=== PATIENT | female | born 2000 | race Caucasian/White ===

== ENCOUNTER 2022-01-31 03:22 | Inpatient (IN) | payer MEDICAID ==
[2022-01-31] MEDS ORDERED: Nalbuphine HCl 10 MG/ 1ML Amp IVPUSH PRN (03:30)
[2022-01-31] MEDS ORDERED: Sodium Chloride 0.9% 10 ML Syringe FLUSH PRN (03:30)
[2022-01-31] MEDS ORDERED: Oxytocin/Lactated Ringers 10 UNIT/1,000 ML BAG IV SCH (03:30)
[2022-01-31] MEDS ORDERED: Lidocaine 1% 50 ML MDV INJECT SCH (03:30)
[2022-01-31] MEDS ORDERED: Ampicillin 2 GM in Sodium Chloride 0.9% 100 ML IV ONE (04:00)
[2022-01-31] MEDS: Lactated Ringers 1,000 ML IV SCH ×3 (04:15→13:18)
[2022-01-31] MEDS ORDERED: Misoprostol 25 MCG (1/4 of 100 MCG) Tab VAG ONE ×2 (05:59→11:28)
[2022-01-31] MEDS ORDERED: Lidocaine 2% with EPINEPHrine 1:200,000 20 ML SDV ONE (06:00)
[2022-01-31] MEDS ORDERED: Bupivacaine 0.25% 10 ML SDV ONE (06:00)
[2022-01-31] MEDS ORDERED: Sodium Bicarbonate 8.4% 50 MEQ/50 ML SDV ONE (06:00)
[2022-01-31] MEDS ORDERED: diphenhydrAMINE 50 MG/ML SDV IVPUSH PRN (06:08)
[2022-01-31] MEDS ORDERED: ePHEDrine 50 MG/ML SDV IVPUSH PRN (06:08)
[2022-01-31] MEDS ORDERED: fentaNYL 100 MCG/2 ML SDV EPIDUR PRN (06:08)
[2022-01-31 06:31] LABS: ESTIMATED GFR > 60 mL/min (>60)
[2022-01-31] MEDS ORDERED: Ampicillin 1 GM in Sodium Chloride 0.9% 100 ML IV SCH (08:00)
[2022-01-31] MEDS: Ampicillin 1 GM in Sodium Chloride 0.9% 100 ML IV SCH ×4 (08:35→20:48)
[2022-01-31] MEDS: Bupivacaine/fentaNYL/NS 100 ML Bag EPIDUR PRN ×2 (10:33→19:35)
[2022-01-31] MEDS: Oxytocin/Lactated Ringers 10 UNIT/1,000 ML BAG IV SCH (16:10)
[2022-01-31] MEDS: Ondansetron 4 MG/2 ML SDV IVPUSH PRN (23:06)
[2022-02-01] MEDS: Ampicillin 1 GM in Sodium Chloride 0.9% 100 ML IV SCH ×4 (00:54→19:24)
[2022-02-01] MEDS: Bupivacaine/fentaNYL/NS 100 ML Bag EPIDUR PRN (04:12)
[2022-02-01] MEDS: Ondansetron 4 MG/2 ML SDV IVPUSH PRN (09:15)
[2022-02-01] MEDS: Lactated Ringers 1,000 ML IV SCH ×2 (10:14→13:43)
[2022-02-01] MEDS: Oxytocin/Lactated Ringers 10 UNIT/1,000 ML BAG IV SCH (10:15)
[2022-02-01] MEDS ORDERED: Metoclopramide 10 MG/2 ML SDV IVPUSH ONE (12:39)
[2022-02-01] MEDS ORDERED: Citric Acid/Sodium Citrate Solution 30 ML Cup PO ONE (12:39)
[2022-02-01] MEDS ORDERED: Azithromycin 500 MG in Sodium Chloride 0.9% 250 ML IV ONE (12:41)
[2022-02-01] MEDS ORDERED: Bupivacaine 0.5% 30 ML SDV ONE (12:47)
[2022-02-01] MEDS ORDERED: Metoclopramide 10 MG/2 ML SDV ONE (12:47)
[2022-02-01] MEDS ORDERED: ceFAZolin 1 GM Vial ONE (12:49)
[2022-02-01] MEDS ORDERED: Lactated Ringers 1,000 ML ONE (12:49)
[2022-02-01] MEDS ORDERED: Oxytocin 10 Units/1 ML SDV ONE (14:18)
[2022-02-01] MEDS ORDERED: Ondansetron 4 MG/2 ML SDV ONE (14:21)
[2022-02-01] MEDS ORDERED: Morphine 10 MG/ML SDV ONE (14:24)
[2022-02-01] MEDS ORDERED: Morphine PF 10 MG/10 ML SDV ONE (14:25)
[2022-02-01] MEDS ORDERED: Ketorolac 30 MG/ML SDV ONE (14:36)
[2022-02-01] MEDS ORDERED: Dexamethasone 4 MG/ML SDV ONE (14:36)
[2022-02-01] MEDS ORDERED: Albuterol 6.7 GM Inhaler INH PRN (15:10)
[2022-02-01] MEDS ORDERED: diphenhydrAMINE 50 MG/ML SDV IVPUSH PRN ×2 (15:12→15:41)
[2022-02-01] MEDS ORDERED: Ondansetron 4 MG/2 ML SDV IV PRN (15:12)
[2022-02-01] MEDS ORDERED: ePHEDrine 50 MG/ML SDV IVPUSH PRN (15:12)
[2022-02-01] MEDS ORDERED: Naloxone 0.4 MG/ML SDV IVPUSH PRN (15:12)
[2022-02-01] MEDS ORDERED: Dextrose 5%-Lactated Ringers 1,000 ML IV SCH (15:15)
[2022-02-01] MEDS ORDERED: Ondansetron 4 MG/2 ML SDV IVPUSH PRN (15:41)
[2022-02-01] MEDS ORDERED: Meperidine 50 MG/ML Vial IVPUSH PRN (15:41)
[2022-02-01] MEDS ORDERED: fentaNYL 100 MCG/2 ML SDV IVPUSH PRN (15:41)
[2022-02-01] MEDS: Simethicone 80 MG Tab.Chew PO SCH ×2 (18:39→22:09)
[2022-02-01] MEDS: Ibuprofen 800 MG Tab PO SCH (22:10)
[2022-02-02] MEDS: Ibuprofen 800 MG Tab PO SCH ×3 (05:15→21:02)
[2022-02-02] MEDS: Simethicone 80 MG Tab.Chew PO SCH ×4 (08:53→21:02)
[2022-02-02] MEDS: Docusate Sodium 100 MG Cap PO PRN (08:53)
[2022-02-02] MEDS: Acetaminophen/oxyCODONE 325-5 MG Tab PO PRN ×3 (13:56→19:39)
[2022-02-03] MEDS: Acetaminophen/oxyCODONE 325-5 MG Tab PO PRN ×6 (00:57→23:31)
[2022-02-03] MEDS: Ibuprofen 800 MG Tab PO SCH ×3 (04:54→21:09)
[2022-02-03] MEDS: Simethicone 80 MG Tab.Chew PO SCH ×4 (09:35→21:09)
[2022-02-03] MEDS: Docusate Sodium 100 MG Cap PO PRN (09:38)
[2022-02-03] MEDS ORDERED: Magnesium Hydroxide 400 MG/5 ML Susp 30 ML Cup PO ONE (21:06)
[2022-02-04] MEDS: Ibuprofen 800 MG Tab PO SCH (04:45)
[2022-02-04] MEDS: Acetaminophen/oxyCODONE 325-5 MG Tab PO PRN ×2 (04:45→10:55)
[2022-02-04] MEDS: Simethicone 80 MG Tab.Chew PO SCH (09:29)
== END 2022-02-04 11:35 | disposition home or self-care (01) | DRG 788 ==
LOC: JD.OBCHECK 03:22 → JD.OB 03:30 → OBSVTOIN 14:33 → JD.OB 02-01 14:34
PROVIDERS: ADMIT Obstetrics & Gynecology; ATTEND Obstetrics & Gynecology
PROC: 3E0P7VZ Introduction of Hormone into Female Reproductive, Via Natural or Artificial Opening (ICD-10-PCS; 2022-01-31)
PROC: 10D00Z1 Extraction of Products of Conception, Low, Open Approach (ICD-10-PCS; principal; 2022-02-01)
PROC: 10H07YZ Insertion of Other Device into Products of Conception, Via Natural or Artificial Opening (ICD-10-PCS; 2022-02-01)
PROC: 10907ZC Drainage of Amniotic Fluid, Therapeutic from Products of Conception, Via Natural or Artificial Opening (ICD-10-PCS; 2022-02-01)
DX: O14.94 Unspecified pre-eclampsia, complicating childbirth (principal); Z3A.38 38 weeks gestation of pregnancy; Z37.0 Single live birth; O65.4 Obstructed labor due to fetopelvic disproportion, unspecified
CPT/HCPCS: 01967; 01968; 36415; 51702; 59025; 82565; 82570; 83615; 84156; 84450; 84460; 84520; 84550; 85025; 86592; 86850; 86900; 86901; A9270-GY; J0290; J0456; J0690; J1100; J1885; J2270; J2274; J2405; J2590; J2765; J3010; J3490; J7050; J7120; J7121

== ENCOUNTER 2025-01-02 04:17 | Inpatient (IN) | payer MEDICAID ==
[~2025-01-02 04:17] MED LIST: Lactated Ringers 1,000 ML IV SCH; Oxytocin/0.9 % Sodium Chloride 30 UNIT/500 ML BAG IV SCH; Sodium Chloride 0.9% 10 ML Syringe FLUSH PRN; ceFAZolin 2 GM in Sodium Chloride 0.9% 50 ML IV ONE
[2025-01-02] MEDS ORDERED: ceFAZolin 2 GM in Sodium Chloride 0.9% 50 ML IV ONE (04:49)
[2025-01-02] MEDS: Lactated Ringers 1,000 ML IV SCH (05:35)
[2025-01-02 05:58] LABS: BASOPHILS PERCENT AUTO 0.3 % (0.0-1.0); EOSINOPHILS ABSOLUTE AUTO 0.3 K/mm3 (0.0-0.4); EOSINOPHILS PERCENT AUTO 2.4 % (0.0-6.0); HEMOGLOBIN 11.1 gm/dl (12.0-16.0); IMMATURE GRAN ABSOLUTE AUTO 0.08 K/mm3 (0.00-0.05); IMMATURE GRAN PERCENT AUTO 0.8 % (0.0-0.4); LYMPHOCYTES ABSOLUTE AUTO 3.2 K/mm3 (1.0-4.8); LYMPHOCYTES PERCENT AUTO 31.3 % (24.0-44.0); MEAN CORPUSCULAR HEMOGLOBIN 25.9 pg (28.0-32.0); MEAN CORPUSCULAR HGB CONC 32.6 g/dl (32.0-36.0); MEAN CORPUSCULAR VOLUME 79.3 fl (83.0-99.0); MONOCYTES ABSOLUTE AUTO 0.8 K/mm3 (0.0-0.8); MONOCYTES PERCENT AUTO 7.6 % (0.0-8.0); NEUTROPHILS PERCENT AUTO 57.6 % (41.0-71.0); PLATELET COUNT,PLT 174 K/mm3 (150-400); RED BLOOD CELL COUNT 4.29 M/mm3 (4.10-5.30); WHITE BLOOD CELL COUNT,WBC 10.32 K/mm3 (3.9-11.3)
[2025-01-02] MEDS: Metoclopramide 10 MG/2 ML SDV IVPUSH ONE ×2 (06:35→07:26)
[2025-01-02] MEDS: Citric Acid/Sodium Citrate Solution 30 ML Cup PO ONE ×2 (06:35→07:26)
[2025-01-02] MEDS ORDERED: Phenylephrine 1% 10 MG/ML SDV ONE (06:38)
[2025-01-02] MEDS ORDERED: Ondansetron 4 MG/2 ML SDV ONE (06:38)
[2025-01-02] MEDS ORDERED: Morphine PF 10 MG/10 ML SDV ONE (06:38)
[2025-01-02] MEDS ORDERED: dexmedeTOMIDine HCl 200 MCG/2 ML SDV ONE (06:38)
[2025-01-02] MEDS: Sodium Chloride 0.9% 10 ML Syringe FLUSH SCH ×2 (07:26→12:29)
[2025-01-02] MEDS: ceFAZolin 2 GM Vial IVPUSH ONE (07:29)
[2025-01-02] MEDS ORDERED: Dexamethasone 4 MG/ML 5 ML MDV ONE (08:00)
[2025-01-02] MEDS ORDERED: Glycopyrrolate 0.2 MG/ML 2 ML SDV ONE (08:03)
[2025-01-02] MEDS ORDERED: ceFAZolin 2 GM Vial ONE (08:04)
[2025-01-02] MEDS ORDERED: Propofol 200 MG/20 ML SDV ONE (08:23)
[2025-01-02] MEDS ORDERED: Lactated Ringers 1,000 ML IV ONE (08:30)
[2025-01-02] MEDS ORDERED: Ketorolac 30 MG/ML SDV ONE (08:33)
[2025-01-02] MEDS ORDERED: Sodium Chloride 0.9% 50 ML SDV ONE (08:37)
[2025-01-02] MEDS ORDERED: Ropivacaine 0.5% 5 MG/ML 30 ML SDV ONE (08:37)
[2025-01-02] MEDS ORDERED: Ondansetron 4 MG/2 ML SDV IVPUSH PRN (09:08)
[2025-01-02] MEDS ORDERED: diphenhydrAMINE 50 MG/ML SDV IVPUSH PRN ×2 (09:08→09:12)
[2025-01-02] MEDS ORDERED: Meperidine 50 MG/ML Vial IVPUSH PRN (09:08)
[2025-01-02] MEDS ORDERED: fentaNYL 100 MCG/2 ML SDV IVPUSH PRN (09:08)
[2025-01-02] MEDS ORDERED: ePHEDrine 50 MG/ML SDV IVPUSH PRN (09:12)
[2025-01-02] MEDS ORDERED: Naloxone 0.4 MG/ML SDV IVPUSH PRN (09:12)
[2025-01-02] MEDS: Ibuprofen 800 MG Tab PO SCH ×2 (11:00→17:02)
[2025-01-02] MEDS: Acetaminophen 325 MG Tab PO SCH ×2 (11:00→17:03)
[2025-01-02] MEDS: Dextrose 5%-Lactated Ringers 1,000 ML IV SCH (12:48)
[2025-01-02] MEDS: oxyCODONE 5 MG Tab PO PRN (18:05)
[2025-01-02] MEDS: Simethicone 80 MG Tab.Chew PO PRN (20:36)
[2025-01-02] MEDS: Sennosides 8.6 MG Tab PO SCH (21:55)
[2025-01-03] MEDS: oxyCODONE 5 MG Tab PO PRN (03:14)
[2025-01-03 05:38] LABS: HEMATOCRIT 31.5 % (37.0-47.0); HEMOGLOBIN 10.1 gm/dl (12.0-16.0); MEAN CORPUSCULAR HGB CONC 32.1 g/dl (32.0-36.0); MEAN CORPUSCULAR VOLUME 81.2 fl (83.0-99.0); PLATELET COUNT,PLT 146 K/mm3 (150-400); RED BLOOD CELL COUNT 3.88 M/mm3 (4.10-5.30); WHITE BLOOD CELL COUNT,WBC 10.21 K/mm3 (3.9-11.3)
[2025-01-03] MEDS: Docusate Sodium 100 MG Cap PO PRN (17:48)
== END 2025-01-04 11:35 | disposition home or self-care (01) | DRG 788 ==
LOC: JD.OB 04:17
PROVIDERS: ADMIT Obstetrics & Gynecology; ATTEND Obstetrics & Gynecology
PROC: 10D00Z1 Extraction of Products of Conception, Low, Open Approach (ICD-10-PCS; principal; 2025-01-02 07:30)
DX: O34.211 Maternal care for low transverse scar from previous cesarean delivery (principal); Z3A.38 38 weeks gestation of pregnancy; Z37.0 Single live birth; O99.214 Obesity complicating childbirth; Z90.49 Acquired absence of other specified parts of digestive tract; Z98.890 Other specified postprocedural states; Z72.0 Tobacco use
CPT/HCPCS: 01961; 36415; 59025; 64488; 85025; 85027; 86592; 86850; 86900; 86901; A9270-GY; J0690; J1100; J1596; J1885; J2274; J2371; J2405; J2704; J2765; J2795; J3490; J7120; J7121; J7999